=== PATIENT | female | born 1980 | race Caucasian/White ===

== ENCOUNTER 2023-09-30 14:59 | Outpatient (REF) | payer BC, SELFPAY ==
[2023-09-30 14:17] LABS: Abs Immature Grans 0.02 10^3/uL (0.0-0.06); Absolute Basophil Count 0.08 10^3/uL (0.0-0.2); Absolute Eosinophil Count 0.16 10^3/uL (0.0-0.7); Absolute Lymphocyte Count 1.99 10^3/uL (1.2-3.4); Absolute Monocyte Count 0.51 10^3/uL (0.1-0.8); Absolute Neutrophil Count 4.92 10^3/uL (1.2-6.7); Eosinophils % 2.1 %; HCT 40.4 % (36.0-46.0); HGB 13.8 g/dL (11.2-15.7); Immature Grans % 0.3 %; Lymphocytes % 25.9 %; MCHC 34.2 % (32.0-36.0); MCV 97 fL (80-95); MPV 10.9 fL (8.0-11.0); Monocytes % 6.6 %; Neutrophils % 64.1 %; Platelet Count 223 10^3/uL (130-400); RBC 4.18 10^6/uL (3.93-5.22); RDW 12.8 % (11.7-14.6); RDW-SD 45.8 fL; WBC 7.68 10^3/uL (4.4-10.8)
[2023-09-30 14:36] LABS: ALT 24 U/L (14-59); AST 20 U/L (15-37); Albumin 3.8 g/dL (3.4-5.0); Alkaline Phosphatase 70 U/L (46-116); Anion Gap 10.9 mmol/L (3-11); BUN 13 mg/dL (7-18); Bilirubin, Total 0.9 mg/dL (0.2-1.0); CO2 25.1 mmol/L (21.0-32.0); CREATININE 0.6 mg/dL (0.55-1.02); Calcium 9.2 mg/dL (8.5-10.1); Chloride 102 mmol/L (98-107); Estimated GFR 112.73 (mL/min/1.73m2); FREE T4 0.84 ng/dL (0.76-1.46); Glucose 101 mg/dL (74-106); Potassium 4.1 mmol/L (3.5-5.1); Sodium 138 mmol/L (136-145); TSH 2.25 uIU/Ml (0.36-3.74); Total Protein 6.9 g/dL (6.4-8.2)
[2023-09-30 14:48] LABS: Vitamin D 25 Total 41.8 ng/mL (30-100)
[2023-09-30 22:10] LABS: T3, Total 155 ng/dL (97-169)
== END 2023-09-30 15:00 | disposition home or self-care (01) ==
LOC: NCHCN 14:59
PROVIDERS: Visit Provider Family Medicine
DX: E03.9 Hypothyroidism, unspecified (principal); Z86.2 Personal history of diseases of the blood and blood-forming organs and certain disorders involving the immune mechanism
CPT/HCPCS: 80053; 82306; 84439; 84443; 84480; 84481; 85025

== ENCOUNTER 2023-12-14 21:29 | Outpatient (REF) | payer BC, SELFPAY ==
[2023-12-14 22:08] LABS: HGB 13.5 g/dL (11.2-15.7); MCH 32.6 pg (27.0-33.0); MCHC 34.6 % (32.0-36.0); MCV 94 fL (80-95); MPV 11.3 fL (8.0-11.0); Platelet Count 228 10^3/uL (130-400); RBC 4.14 10^6/uL (3.93-5.22); RDW 12.7 % (11.7-14.6); RDW-SD 44.1 fL; WBC 10.49 10^3/uL (4.4-10.8)
[2023-12-14 22:46] LABS: ALT 24 U/L (14-59); AST 18 U/L (15-37); Albumin 3.7 g/dL (3.4-5.0); Alkaline Phosphatase 73 U/L (46-116); Anion Gap 10.4 mmol/L (3-11); BUN 14 mg/dL (7-18); Bilirubin, Total 0.79 mg/dL (0.2-1.0); CO2 27.6 mmol/L (21.0-32.0); CREATININE 0.8 mg/dL (0.55-1.02); Calcium 9.3 mg/dL (8.5-10.1); Calculated LDL 39 mg/dL (<100); Chloride 100 mmol/L (98-107); Cholesterol 152 mg/dL (<200); Estimated GFR 92.54 (mL/min/1.73m2); Glucose 82 mg/dL (74-106); HDL Cholesterol 86 mg/dL (40-60); Potassium 3.8 mmol/L (3.5-5.1); Sodium 138 mmol/L (136-145); TSH 2.33 uIU/Ml (0.36-3.74); Triglyceride 137 mg/dL (<150); Vitamin D 25 Total 46.3 ng/mL (30-100)
[2023-12-14 23:31] LABS: FREE T4 0.98 ng/dL (0.76-1.46)
== END 2023-12-14 21:30 | disposition home or self-care (01) ==
LOC: NCHCN 21:29
PROVIDERS: Visit Provider Urology
DX: Z00.00 Encounter for general adult medical examination without abnormal findings (principal); E03.9 Hypothyroidism, unspecified
CPT/HCPCS: 80053; 80061; 82306; 85027; 84439; 84443

== ENCOUNTER 2024-06-01 09:13 | Outpatient (REF) | payer BC, SELFPAY ==
[2024-06-01 17:08] LABS: ALT 15 U/L (14-59); AST 17 U/L (15-37); Albumin 3.4 g/dL (3.4-5.0); Alkaline Phosphatase 83 U/L (46-116); Anion Gap 6.3 mmol/L (3-11); BUN 23 mg/dL (7-18); Bilirubin, Total 0.29 mg/dL (0.2-1.0); CO2 27.7 mmol/L (21.0-32.0); CREATININE 0.8 mg/dL (0.55-1.02); Calcium 9.1 mg/dL (8.5-10.1); Calculated LDL 85 mg/dL (<100); Chloride 105 mmol/L (98-107); Cholesterol 179 mg/dL (<200); Estimated GFR 91.97 (mL/min/1.73m2); Glucose 88 mg/dL (74-106); HDL Cholesterol 65 mg/dL (40-60); Potassium 4.3 mmol/L (3.5-5.1); Sodium 139 mmol/L (136-145); Total Protein 6.6 g/dL (6.4-8.2); Triglyceride 145 mg/dL (<150)
== END 2024-06-01 09:14 | disposition home or self-care (01) ==
LOC: NCHCN 09:13
PROVIDERS: Visit Provider Family Medicine
DX: E03.9 Hypothyroidism, unspecified (principal); Z00.00 Encounter for general adult medical examination without abnormal findings
CPT/HCPCS: 80053; 80061; 82306